=== PATIENT | male | born 1970 | race Caucasian/White ===

== ENCOUNTER 2019-06-15 08:01 | Day surgery (SDC) | payer BC ==
[2019-06-14 14:05] VITALS: BMI 44.4
[2019-06-15] MEDS ORDERED: PROPOFOL 20 ML ONE ×2 (08:06)
[2019-06-15] MEDS ORDERED: MIDAZOLAM HCL 2 MG/2 ML SINGLE DOSE VIAL ONE (08:06)
[2019-06-15] MEDS ORDERED: ceFAZolin SODIUM 1 GM VIAL IVPB ONE (10:24)
[2019-06-15] MEDS ORDERED: SODIUM CHLORIDE 0.9% P/F 10 ML VIAL IJ ONE (10:32)
[2019-06-15] MEDS ORDERED: ceFAZolin SODIUM 1 GM VIAL ONE (10:32)
[2019-06-15 11:08] VITALS: TEMP 97.7
--- NOTE | 2019-06-15 11:38 | OP ---
Operative Note - Note: Operative Date: 06/15/19 Pre-Operative Diagnosis: Right renal stone Operation: right Lithotripsy Findings: 7 mm RLP stone Post-Operative Diagnosis: Same as Pre-op Surgeon: Scooby Lara MD. Anesthesia: General Operative Report Dictated: Yes
[2019-06-15] MEDS ORDERED: ELECTROLYTE-148 SOLN 1,000 ML IV SCH (11:45)
[2019-06-15 12:22] VITALS: BP 124/76; PULSE 57
--- NOTE | 2019-06-15 12:45 | OP ---
DATE OF OPERATION: 06/15/2019 PREOPERATIVE DIAGNOSIS: Right renal calculi. POSTOPERATIVE DIAGNOSIS: Right renal calculi. PROCEDURE: Right lithotripsy. HISTORY: This is a very pleasant 49-year-old gentleman with a history of calculi in the past. He presents preoperatively with imaging of CAT scan confirming multiple right lower pole stones the largest of which is 7 mm. After discussing treatment options, the patient elected to undergo above-stated procedure. Risks and benefits of treatment and alternative treatments were discussed in detail. All questions were answered. BRIEF OPERATIVE NOTE: Patient was brought to the operating room, placed in supine position. General anesthesia was administered, 3 g of Ancef were given. A time-out was performed. At this time, stone was localized using 3D imaging. Approximately 2500 shocks were delivered in electromagnetic fashion. The patient tolerated the procedure well and was brought to recovery room in stable and satisfactory condition. MANUEL TELLO M.D. [id number]
== END 2019-06-15 12:25 | disposition home or self-care (01) ==
LOC: JASU-SURG 08:01
PROVIDERS: ATTEND Urology
PROC: 0TF3XZZ Fragmentation in Right Kidney Pelvis, External Approach (ICD-10-PCS; principal; 2019-06-15 10:00)
DX: N20.0 Calculus of kidney (principal)